=== PATIENT | male | born 1960 | race Caucasian/White ===

== ENCOUNTER 2018-04-12 14:07 | Observation (INO) | payer BC ==
--- OUTSIDE RECORDS SUMMARY | 2018-04-12 14:27 | XMS REPORT | Continuity of Care Document ---
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 Active Onset: 01/06/2016 Marginal corneal ulcer Torsten Caruso M.D. Active Onset: 08/06/2015 Vitreous opacities Maxi Rogel O.D. Active Onset: 08/06/2015 Ocular hypertension Maxi Rogel O.D. Active Family History Date Family Member(s) Problem(s) Comments General Cancer General Grandparent Father Cataract Mother Cataract Mother Arthritis Mother Diabetes Social History Type Date Description Comments Sex Unknown ETOH Use Occasionally consumes alcohol Tobacco Use Start: Unknown Patient has never smoked Smoking Status Reviewed: 03/28/18 Patient has never smoked Allergies, Adverse Reactions, Alerts Description No Known Drug Allergies Medications Medication Date Status Form Strength Qnty SIG Indications Ordering Provider Lumigan Active Solution 0.01% 7.500ml one drop Maxi 017 every Flores, OD night at bedtime both eyes Lumigan Hx Solution 0.01% 7.500ml one drop Maxi 017 - every Flores, OD night at 017 bedtime both eyes Lumigan Hx Solution 0.01% 7.500ml one drop Maxi 017 - every Flores, OD night at 017 bedtime both eyes Lumigan Hx Solution 0.01% 7.500ml one drop Maxi 017 - every Flores, OD night at 017 bedtime both eyes No Active Hx Unknown Medications 016 - 016 Minal Hx Solution 0.01% 7.500ml 1 drops H40.053 Torsten 016 - both eyes Caruso, every M.D. 017 night Immunizations Description No Information Available Vital Signs Date Vital Result Comment 05/11/2017 2:03pm Intraocular Pressure Right Eye 18 mmHg Intraocular Pressure Left Eye 18 mmHg 02/02/2017 9:32am Intraocular Pressure Right Eye 20 mmHg Intraocular Pressure Left Eye 20 mmHg 08/17/2016 9:25am Intraocular Pressure Right Eye 21 mmHg Intraocular Pressure Left Eye 21 mmHg 05/20/2016 9:32am Intraocular Pressure Right Eye 18 mmHg Intraocular Pressure Left Eye 18 mmHg 01/06/2016 10:05am Intraocular Pressure Right Eye 20 mmHg Intraocular Pressure Left Eye 20 mmHg 09/06/2015 11:38am Intraocular Pressure Right Eye 21 mmHg Intraocular Pressure Left Eye 21 mmHg 08/06/2015 10:07am Intraocular Pressure Right Eye 31 mmHg Intraocular Pressure Left Eye 30 mmHg Cornea Thickness Left Eye 279240 m Cornea Thickness Right Eye 580903 m Pachymetry adjusted IOP Right Eye 0 Pachymetry adjusted IOP Left Eye +1 Results Description No Information Available Procedures Date Code Description Status 03/28/2018 02311 Oct, Optic Nerve Completed 03/28/2018 89807 Eye Exam Est Intermediate Completed 05/11/2017 58939 Visual Field Exam Extended, Unilateral Or Bilateral Completed 05/11/2017 64347 Eye Exam Est Intermediate Completed 02/02/2017 72360 Fundus Photography W/Interpretation & Report Completed 02/02/2017 05576 Eye Exam Est Intermediate Completed 08/17/2016 11328 Oct, Optic Nerve Completed 08/17/2016 14231 Eye Exam Est Intermediate Completed 05/20/2016 06194 Eye Exam Est Intermediate Completed 01/06/2016 52079 Eye Exam Est Intermediate Completed 09/06/2015 73142 Oct, Optic Nerve Completed 09/06/2015 04186 Visual Field Exam Extended, Unilateral Or Bilateral Completed 09/06/2015 84737 Eye Exam Est Intermediate Completed 08/06/2015 27482 Fundus Photography W/Interpretation & Report Completed 08/06/2015 84919 Eye Exam New Comprehensive Completed Encounters Description No Information Available Plan of Treatment 03/28/2018 - Maxi Flores, ODH40.053 Ocular hypertension, bilateralFollow up:~1 -2 mos full
--- OUTSIDE RECORDS SUMMARY | 2018-04-12 14:27 | XMS REPORT ---
:1960 External Reference #:[id number] Author Organization [facility] Address [address] [place] [address] Phone [phone] Care Team Providers Name Role Phone Harry Day MD Care Team Information Recyclable Materials Sorter Unavailable Harry Day MD Primary Care Physician Unavailable Payers Type Date Identification Numbers Payment Provider Subscriber Commercial Effective: Policy Number: BC/BS Of [place] Antonino French 2011 [id number] Group Name: [employer] [address] [address] PayID: [id number] [place] [address] Problems Date Description Provider Status Onset: 03/29/2018 Dermatophytosis of the body Harry Day M.D. Active Onset: 03/29/2018 Other hyperlipidemia Haryr Day M.D. Active Onset: 10/19/2017 Adult health examination Haryr Day M.D. Active Onset: 10/19/2017 Benign prostatic hypertrophy without Harry Day M.D. Active outflow obstruction Onset: 10/19/2017 Hyperlipidemia Harry Day M.D. Active Onset: 10/19/2017 Essential hypertension Harry Day M.D. 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 Treatment 2018 ml application Shallish, topically to M.D. affected area daily at bedtime for fungal nail disease Eye Drops / Active Solution 1 gtt both Unknown 0000 eyes qd No Active 10/19/ Hx Unknown Medications 2018 - 2017 Prednisone 09/14/ Hx Tablets 20mg 20tabs 3 by mouth R21 Omaira 2018 - every day x2 Alessia 10/14/ days then 2 Rothman, 2018 by mouth PROMOTIONS SPECIALIST every day x 3 days then 1 by mouth every day x 3 days then 1/2 every day x 4 Tamiflu 05/20/ Hx Capsules 75mg 10caps take 1 Tiera 2017 - capsule by Brookesmith, 09/13/ mouth daily M.D. 2017 for 10 days for treatment to prevent influenza No Active 04/06/ Hx Unknown Medications 2015 - 2015 Ciclopirox 04/06/ Hx Gel 0.77% 45gm apply to B35.4 Berna 2015 - affected Dae, 08/19/ area three [employer] 2017 times a day Ciloxan 10/26/ Hx Solution 3.33mg/GM 5ml 1-2 qtt in 373.11 Berna 2005 - affected eye Dae, 05/23/ q2h wa for [employer] 2008 2D then q4h wa for 3-4D Immunizations CPT Code Status Date Vaccine Lot # [id number] Given 03/29/2018 Influenza Vac, Quadrivalent, Slit Virus, Im [id number] Given 10/19/2017 Tdap Tetanus, W Pertussis [id number] Given 05/29/2004 Td Immunization, For Use In Individuals 7 Years Or Older Vital Signs Date Vital Result Comment 03/29/2018 BP Systolic 136 mmHg BP Diastolic 82 mmHg Heart Rate 72 /min Body Temperature 97.9 F Respiratory Rate 16 /min Height 72 inches 6'0" measured 10/19/17 Weight 232.00 lb BMI (Body Mass Index) 31.5 kg/m2 10/19/2017 BP Systolic 140 mmHg BP Diastolic 100 mmHg Heart Rate 72 /min Body Temperature 98.8 F Respiratory Rate 16 /min Height 72 inches 6'0" measured 10/19/17 Weight 227.25 lb BMI (Body Mass Index) 30.8 kg/m2 09/14/2017 BP Systolic 152 mmHg BP Diastolic 84 mmHg Heart Rate 78 /min Body Temperature 98.4 F Height 72.25 inches 6'0.25" Weight 225.00 lb BMI (Body Mass Index) 30.3 kg/m2 04/06/2016 BP Systolic 120 mmHg BP Diastolic 80 mmHg Heart Rate 76 /min Body Temperature 98.2 F Respiratory Rate 18 /min Height 72.25 inches 6'0.25" Weight 230.00 lb BMI (Body Mass Index) 31.0 kg/m2 06/23/2012 BP Systolic 142 mmHg BP Diastolic 92 mmHg Heart Rate 74 /min Body Temperature 98.6 F Height 72.25 inches 6'0.25" Weight 226.00 lb BMI (Body Mass Index) 30.4 kg/m2 11/12/2008 BP Systolic 120 mmHg BP Diastolic 80 mmHg Heart Rate 68 /min Body Temperature 98.2 F Height 72 inches 6'0" Weight 223.00 lb BMI (Body Mass Index) 30.2 kg/m2 05/23/2007 BP Systolic 134 mmHg BP Diastolic 80 mmHg Body Temperature 98.7 F Height 72 inches 6'0" Weight 222.00 lb BMI (Body Mass Index) 30.1 kg/m2 10/26/2005 BP Systolic 120 mmHg BP Diastolic 70 mmHg Heart Rate 76 /min Body Temperature 98.1 F Height 72 inches 6'0" Weight 220.00 lb BMI (Body Mass Index) 29.8 kg/m2 05/29/2004 BP Systolic 130 mmHg BP Diastolic 92 mmHg Heart Rate 74 /min Height 72 inches 6'0" Weight 220.00 lb BMI (Body Mass Index) 29.8 kg/m2 Results Test Date Test Result H/L Range Note Laboratory test finding 03/29/2018 TSH <pending> 0.5-5.0 Creatine Kinase <pending> 38-174 CBC Electronic (a New) 03/29/2018 WBC 8.94 4.0-10.0 RBC 4.74 3.93-6.0 Hemoglobin (Fma/CMC/CTX) 15.0 g/dL 12.0-17.0 Hematocrit (Fma/CMC/CTX) 44.8 % 35.0-50.0 Mean Corpuscular Vol 94.5 fL 80-95 Mean Corpuscular Hemoglobin 31.6 pg 25.6-32.2 Mean Corpuscular Hemo Concen 33.5 g/dL 32.2-36.0 Platelets 220 10^3/ul 163-400 RDW-CV 12.1 11.6-14.4 Mean Platelet Volume 11.4 fL 8.0-12.4 Absolute Neutrophils BLD 6.42 High 1.56-6.13 Absolute Lymphocytes 1.54 1.18-3.74 Absolute Monocytes BLD Auto 0.75 0.24-0.82 Absolute Eos Blood 0.16 0.04-0.54 Absolute Basophils 0.05 0.01-0.08 Neutrophil % 71.8 % High 34.0-70.0 Lymph% 17.2 % Low 20.0-52.0 Monocytes % 8.4 % 5.0-12.0 Eos % 1.8 % 0.7-7.0 Basophil% 0.6 % 0-1.2 CBC Electronic [facility] 10/19/2017 WBC 5.9 x10^3/UL 4.0-10.0 RBC 4.70 x10^6/UL 3.93-6.00 HGB 14.6 g/dL 12.0-17.0 HCT 43 % 35-50 MCV 92.1 fL 80.0-95.0 MCH 31.1 pg 25.6-32.2 MCHC 33.7 g/dL 32.2-36.0 RDW-CV 12.0 % 11.6-14.4 PLT 219 x10^3/UL 163-400 MPV 11.9 fL 9.4-12.4 Darline# 4.15 x10^3/UL 1.56-6.13 Lymph# 1.02 x10^3/UL Low 1.18-3.74 [place]# 0.51 x10^3/UL 0.24-0.82 Eos # 0.1 x10^3/UL 0.0-0.5 Baso # 0.05 x10^3/UL 0.01-0.08 [place]% 70.9 % High 34.0-70.0 Lymph % 17.4 % Low 20.0-52.0 [place]% 8.7 % 5.0-12.0 Eos% 1.9 % 0.7-7.0 Baso% 0.9 % 0.1-1.2 Laboratory test finding 10/19/2017 TSH 1.13 mIU/L 0.50-6.00 PSA 0.3 ng/mL 0.0-4.0 Ua - Non Micro (Fma) 10/19/2017 Appearance clear Color yellow Glucose, Urine (Fma/CMC/CTX) neg Bilirubin neg Ketones neg SP Grav 1.015 Blood neg PH 7.0 Protein neg Urobil 0.2 Nitrite neg Leukocytes (a/[place]/Centrex) neg Comprehensive Metabolic Prof 10/19/2017 Sodium 140 mEq/L 134-149 Potassium 4.7 mEq/L 3.6-5.5 Chloride 104 mEq/L 94-112 Carbon Dioxide 29 mEq/L 21-32 Glucose 120 mg/dL High 70-105 BUN 13 mg/dL 6-26 Creatinine 0.8 mg/dL 0.6-1.4 BUN/Creat Ratio 16.3 CALC 8.0-36.0 Calcium 9.2 mg/dL 8.6-10.2 Total Protein 6.6 g/dL 6.4-8.3 Albumin 4.4 g/dL 3.8-5.5 Globulin 2.2 g/dL 2.0-4.8 A/G Ratio 2.0 CALC 0.6-2.3 Alk. Phosphatase 63 U/L 22-95 Alt (SGPT) 30 U/L 7-35 Ast (Sgot) 16 U/L 5-34 Total Bilirubin 0.5 mg/dL 0.2-1.3 GFR Non- >60 ml/min/1.73m^ >=60 GFR >60 ml/min/1.73m^ >=60 Lipid Profile 10/19/2017 Cholesterol 263 mg/dL High 120-200 Triglycerides 104 mg/dL 30-200 HDL Cholesterol 62 mg/dL 30-70 LDL (Calculated) 180 CALC High 0-129 VLDL Cholesterol 21 mg/dL 0-50 HDL Risk Factor 4.2 CALC 0.0-4.4 Laboratory test finding 11/27/2008 PSA 0.20 ng/mL 0.00-4.00 Complete Blood Count 11/27/2008 WBC 6.2 x10^3/uL 3.6-9.6 1 Gran# 4.5 x10^3/uL 1.5-7.2 1 Gran% 73.0 % 42.2-75.2 1 HCT 45 % 36-50 1 HGB 15.1 g/dL 12.1-17.2 1 Lymph# 1.3 x10^3/uL 0.7-4.9 1 Lymph% 20.3 % Low 20.5-51.1 1 MCH 30.7 pg 27.6-33.3 1 MCV 91.1 fL 82.2-97.4 1 MCHC 33.7 g/dL 33.0-35.5 1 Mo# 0.4 x10^3/uL 0.1-0.9 1 Mo% 6.7 % 1.7-9.3 1 MPV 10.0 fL 7.4-10.4 1 PLT 202 x10^3/uL 150-400 1 RBC 4.92 x10^6/uL 3.90-5.70 1 RDW 12.1 % 11.6-13.7 1 Comprehensive Metabolic Prof 11/27/2008 Albumin 4.4 g/dL 3.8-5.5 1 Alk. Phos. 59 U/L 22-95 1 Alt (SGPT) 22 U/L 10-40 1 Ast (Sgot) 13 U/L 5-34 1 BUN 20 mg/dL 6-26 1 Calcium 9.5 mg/dL 8.6-10.2 1 Chloride 100 mEq/L 94-112 1 Creatinine 1.1 mg/dL 0.6-1.4 1 Carbon Dioxide 28 mEq/L 21-32 1 Glucose 106 mg/dL High 70-105 1 Sodium 140 mEq/L 134-149 1 Total Bilirubin 0.7 mg/dL 0.2-1.3 1 Total Protein 6.9 g/dL 6.3-8.1 1 Potassium 5.4 mEq/L 3.6-5.5 1 Globulin 2.6 g/dL 2.0-4.8 1 A/G Ratio 1.7 Calc 0.6-2.2 1 BUN/Creat Ratio 18.1 Calc 8.0-36.0 1 Lipid Profile 11/27/2008 Cholesterol 283 mg/dL High 120-200 1 HDL 61 mg/dL 30-70 1 Triglycerides 102 mg/dL 30-200 1 HDL Risk Factor 4.7 CALC 4.2-7.0 1 LDL (Calculated) 202 CALC High 0-129 1 VLDL (Calculated) 20 mg/dL 0-50 1 Comp Metabolic Panel 05/25/2007 One Over Creatinine 0.90 Anion Gap 9.0 mmol/L 2-11 2 Albumin/Globulin Ratio 1.8 1-3 Albumin 4.5 GM/DL 3.6-5.4 Alkaline Phosphatase 61 U/L 39-117 Alt (SGPT) 47 U/L 17-63 Ast (Sgot) 20 U/L 12-42 BUN 12 mg/dL 6-24 Calcium 9.7 mg/dL 8.7-10.2 Chloride 105 mmol/L 101-111 Co2 (Carbon Dioxide) 28.0 mmol/L 22-32 Globulin 2.5 GM/DL 2-4 Glucose 93 mg/dL 70-105 Potassium 5.6 mmol/L High 3.5-5.0 Sodium 142 mmol/L 135-145 Bilirubin Total 0.7 mg/dL 0.4-1.5 Total Protein 7.0 GM/DL 6.2-8.1 BUN/Creatinine Ratio 10.9 8-20 Creatinine 1.1 mg/dL 0.5-1.4 Comp Metabolic Panel 05/25/2007 One Over Creatinine 0.90 Anion Gap 9.0 mmol/L 2-11 3 Albumin/Globulin Ratio 1.8 1-3 Albumin 4.5 GM/DL 3.6-5.4 Alkaline Phosphatase 61 U/L 39-117 Alt (SGPT) 47 U/L 17-63 Ast (Sgot) 20 U/L 12-42 BUN 12 mg/dL 6-24 Calcium 9.7 mg/dL 8.7-10.2 Chloride 105 mmol/L 101-111 Co2 (Carbon Dioxide) 28.0 mmol/L 22-32 Globulin 2.5 GM/DL 2-4 Glucose 93 mg/dL 70-105 Potassium 5.6 mmol/L High 3.5-5.0 Sodium 142 mmol/L 135-145 Bilirubin Total 0.7 mg/dL 0.4-1.5 Total Protein 7.0 GM/DL 6.2-8.1 BUN/Creatinine Ratio 10.9 8-20 Creatinine 1.1 mg/dL 0.5-1.4 Laboratory test finding 05/25/2007 TSH 1.31 MIU/ML 0.34-5.60 Complete Blood Count 05/23/2007 WBC 7.5 x10\\S\\3/uL 3.6-9.6 Gran# 5.7 x10\\S\\3/uL 1.5-7.2 Gran% 75.4 % High 42.2-75.2 HCT 47 % 36-50 HGB 15.8 g/dL 12.1-17.2 Lymph# 1.5 x10\\S\\3/uL 0.7-4.9 Lymph% 19.6 % Low 20.5-51.1 MCH 32.3 pg 27.6-33.3 MCV 96.2 fL 82.2-97.4 MCHC 33.6 g/dL 33.0-35.5 Mo# 0.4 x10\\S\\3/uL 0.1-0.9 Mo% 5.0 % 1.7-9.3 MPV 9.2 fL 7.4-10.4 PLT 248 x10\\S\\3/uL 150-400 RBC 4.88 x10\\S\\6/uL 3.90-5.70 RDW 11.8 % 11.6-13.7 Ua - Micro ([facility]) 05/23/2007 Appearance CLEAR Color LT YELLOW Glucose, Urine (a/CMC/CTX) NEG Bilirubin NEG Ketones NEG SP Grav 1.025 Blood NEG PH 6.5 Protein NEG Urobil 0.2 Nitrite NEG Leukocytes (Fma/CMC/Centrex) NEG Hyaline - /Lpf Granular - /Lpf WBC (a,Centrex) 0-1 RBC 0-1 Mucus (Fma/CBC/Centrex) - /Lpf Epith - /Lpf Bacteria - /Hpf Amorphous (Fma/CMC/Centrex) - /Lpf Crystals, Fluid (Fma/CMC/CTX) - Z#Comments - CBC Electronic ([facility]) 05/29/2004 WBC 7.2 3.6-9.6 Lymphocytes 24.6 % 20.5 - 51.1 Monocytes 2.3 % 1.7-9.3 Granulocytes 73.1 % 42.2 - 75.2 Lymphocytes 1.8 10^3/uL 0.7 - 4.9 Monocytes 0.2 10^3/uL 0.1 - 0.9 Granulocytes 5.3 10^3/uL 1.5 - 7.2 RBC 4.84 3.90-5.70 Hemoglobin (Fma/CMC/CTX) 15.5 g/dL 12.1 - 17.2 Hematocrit (Fma/CMC/CTX) 45.8 % 36.1 - 50.3 Mean Corpuscular Vol 94.8 82.2-97.4 Mean Corpuscular Hemaglobin 32.1 27.6-33.3 Mean Corpuscular Hemo Concen 33.9 33.0-35.5 RDW 11.7 11.6-13.7 Platelets 221. 10^3/ul 150-400 Mean Platelet Volume 9.1 7.4-10.4 Comp Metabolic (Fma) Male 05/29/2004 Glucose, Serum (a/CMC/CTX) 95 mg/dL 70-118 BUN (Fma/CMC/Centrex) 16 mg/dL 6-26 Creatinine (Fma/CMC/CTX) 1.1 mg/dL 0.6-1.4 BUN/Creatinin Ratio 14.9 8.0-36 Sodium 142 134-149 Potassium 5.3 3.6-5.5 Chloride 100 mEq/L 94-112 Co2 30 21-32 Calcium (Fma/CMC/Centrex) 10.0 mg/dL 8.6-10.2 Total Protein 7.0 g/dL 6.3-8.1 Albumin (a/CMCC/Centrex) 4.5 3.8-5.5 Globulin 2.5 2.0-4.8 A/G Ratio (Fma/CMC/Centrex) 1.8 0.6-2.2 Alk Phos (a) Male 68 U/L 22-95 Alt (SGPT) 23 10-40 Ast (Sgot) (a/CMC/Centrex) 14 U/mL 5-34 Total Bilirubin 0.6 Lipid Profile(a) Male 05/29/2004 Cholesterol 233 mg/dL High 120-200 Triglyceride 82 mg/dL 30-200 HDL Cholesterol (Fma) Male 45 mg/dL 30-70 LDL, Calculated (a/CMC) 172 CALC High 0-129 LDL, Direct - mg/dL 0-130 VLDL 16 0-50 HDL Risk Factor (a) 5.2 CALC 4.2-7.0 Laboratory test finding 05/29/2004 PSA 0.37 0.0-4.0 TSH (Fma/CMC/Centrex) 1.77 uIU/ml 0.5-6.0 1 FASTING 2 Anion gap measurement may be of limited value in the presence of any alkalosis, especially in a combined acid base disorder. . 3 Anion gap measurement may be of limited value in the presence of any alkalosis, especially in a combined acid base disorder. . Procedures Date CPT Code Description Status 01/28/2018 Colonoscopy Completed 10/19/2017 85822 Electrocardiogram Complete Completed 04/06/2016 65703 Finger Or Heel Stick Completed 07/01/2007 Colonoscopy Completed Encounters Type Date Location Provider CPT E/M Dx Office Visit 10/19/2017 8:00a Main Office Harry Day M.D. 15047 I10 E78.4 N40.0 Z00.00 Z23 Office Visit 09/14/2017 8:45a [place] [address] R21 R03.0 Office Visit 04/06/2016 11:15a Main Office LILLIE Penn 46277 B35.4 Z83.3 Office Visit 06/23/2012 2:00p Main Office Gagandeep Hidalgo-C 32341 V41.1 Office Visit 11/12/2008 4:40p [facility] Harry Day M.D. 36712 786.50 272.4 530.81 Office Visit 05/23/2007 3:00p [facility] Harry Day M.D. 49996 789.00 Office Visit 10/26/2005 1:15p Main Office LILLIE Penn 27942 373.11 Office Visit 05/29/2004 1:15p Main Office Harry Day M.D. 94557 V70.0 V77.0 V77.91 V76.44 783.1 V06.5 Plan of Care Future Appointment(s):10/24/2018 8:00 am - Harry Day M.D. at [facility] Voinwr6003/29/2018 - Harry Day M.D.I10 Essential (primary) hypertensionComments:blood pressure high today , he is going to recheck this and let me know readings, hopefully less than 140/90, if not then consider [id number] Other hyperlipidemiaComments:continue Crestor ( rosuvastatin) 5 mg daily, recheck lab workB35.4 Tinea corporisComments:under left axilla, refill [id number] Encounter for immunizationFollow up:Followup:. (Follow up) AllFollow up:return to office for cpe in 6 months for cpe
[2018-04-12 15:58] LABS: ABS Basophils 0 10^3/ul (0-0.2); ABS Eosinophils 0 10^3/ul (0-0.6); ABS Monocytes 1.1 10^3/ul (0-0.8); ABS Neutrophils 17.5 10^3/ul (1.5-7.7); ABS Nucleated RBC 0 10^3/ul; Eosinophil % 0.2 %; Hematocrit 48 % (42-52); Lymphocyte % 5.1 %; Mean Corpuscular HGB Conc 34 g/dl (31-36); Mean Corpuscular Hemoglobin 31 pg (27-31); Mean Corpuscular Volume 94 fL (80-94); Mean Platelet Volume 9.9 fL (7.4-10.4); Nucleated Red Blood Cells % 0.1; Platelet Count 224 10^3/ul (150-450); Red Blood Count 5.08 10^6/ul (4.00-5.40); Red Cell Distribution Width 13 % (10.5-15); White Blood Count 19.6 10^3/ul (3.5-10.8)
[2018-04-12 16:15] LABS: EGFR Non-African American 76.7 (>60)
[2018-04-12] MEDS ORDERED: Morphine VIAL* 4 MG/ML VIAL (1 ml vial) IV ONE ×2 (16:28→18:46)
[2018-04-12] MEDS ORDERED: ceFOXitin 2 GM IVPREMIX* 2 GM/50 ML BAG IVPB ONE (16:28)
[2018-04-12] MEDS ORDERED: Ondansetron INJ* 2 MG/ML VIAL IV ONE (16:28)
[2018-04-12] MEDS: NS 0.9% IV ONE ×3 (16:46→18:43)
--- NOTE | 2018-04-12 17:04 | ED ---
Abdominal Pain/Male - HPI Summary HPI Summary: Patient is a 57 y/o M w/ c/o RLQ pain onsetting suddenly last night. N/V/D are denied. Pain is described as constant, he denies back pain, testicular pain, hematuria, fever, diaphoresis, and chills. Patient reports that he did not eat today, last fluid intake was around 1430. PSHx is denied, patient takes medication for HLD. No FMHx of aneurysms. Fever, chills, erythema of eyes, sore throat, chest pain, SOB, cough, abdominal pain, vomiting, nausea, dysuria, hematuria, myalgia, edema, rash and dizziness are not reported. On triage, pain is rated 7/10, nothing is noted to alleviate Sx, Sx aggravated by movement. Home medications and allergies are reviewed. - History of Current Complaint Chief Complaint: EDAbdPain Stated Complaint: LOWER RT ABD PAIN Time Seen by Provider: 04/12/18 16:27 Hx Obtained From: Patient Onset/Duration: Sudden Onset, Lasting Days - onset last night, Still Present Timing: Constant, Lasting Days - onset last night Severity Currently: Severe - 7/10 Pain Intensity: 7 Pain Scale Used: 0-10 Numeric - 7/10 Location: Discrete At: RLQ Radiates: No Aggravating Factor(s): Movement Alleviating Factor(s): Nothing Associated Signs And Symptoms: Positive: Decreased Appetite - has not eaten since yesterday, Other - Fever, chills, erythema of eyes, sore throat, chest pain, SOB, cough, abdominal pain, vomiting, nausea, dysuria, hematuria, myalgia , edema, rash, back pain, testicular pain, and dizziness are not reported. Negative: Diaphoresis, Fever, Cough, Chest Pain, Dizzy, Back Pain, Urinary Symptoms, Nausea, Vomiting - Allergies/Home Medications Allergies/Adverse Reactions: Allergies Allergy/AdvReac Type Severity Reaction Status Date / Time No Known Allergies Allergy Verified 01/24/18 11:46 PMH/Surg Hx/FS Hx/Imm Hx Sensory History: Denies: Hx Legally Blind, Hx Deafness Opthamlomology History: Denies: Hx Legally Blind EENT History: Denies: Hx Deafness - Surgical History Surgery Procedure, Year, and Place: none Infectious Disease History: No Infectious Disease History: Denies: Traveled Outside the [place] in Last 30 Days - Family History Known Family History: Positive: Other - no FMHx of aneurysms - Social History Alcohol Use: Occasionally Substance Use Type: Reports: None Smoking Status (MU): Never Smoked Tobacco Review of Systems Negative: Fever, Chills, Skin Diaphoresis Negative: Erythema Negative: Sore Throat Negative: Chest Pain Negative: Shortness Of Breath, Cough Positive: Abdominal Pain. Negative: Vomiting, Nausea Negative: dysuria, hematuria, pain - NEGATIVE - TESTICULAR PAIN Negative: Myalgia - NEGATIVE - BACK PAIN , Edema Negative: Rash Neurological: Other - NEGATIVE - DIZZINESS All Other Systems Reviewed And Are Negative: Yes Physical Exam - Summary Physical Exam Summary: Constitutional: Well-developed, Well-nourished, Alert. (-) Distressed Skin: Warm, Dry HENT: Normocephalic; Atraumatic Eyes: Conjunctiva normal Neck: Musculoskeletal ROM normal neck. (-) JVD, (-) Stridor, (-) Tracheal deviation Cardio: Rhythm regular, rate normal, Heart sounds normal; Intact distal pulses; The pedal pulses are 2+ and symmetric. Radial pulses are 2+ and symmetric. (-) Murmur Pulmonary/Chest wall: Effort normal. (-) Respiratory distress, (-) Wheezes, (-) Rales Abd: Soft, (-) epigastric tenderness, (+) RLQ tenderness (-) Distension, (+) RLQ Guarding, (-) Rebound Musculoskeletal: (-) Edema Lymph: (-) Cervical adenopathy Neuro: Alert, Oriented x3 Psych: Mood and affect Normal Triage Information Reviewed: Yes Vital Signs On Initial Exam: Initial Vitals Temp Pulse Resp BP Pulse Ox 99 F 104 20 166/106 95 04/12/18 14:19 04/12/18 14:19 04/12/18 14:19 04/12/18 14:19 04/12/18 14:19 Vital Signs Reviewed: Yes Diagnostics - Vital Signs Vital Signs Temp Pulse Resp BP Pulse Ox 04/12/18 16:51 18 04/12/18 16:30 98 184/104 96 04/12/18 16:29 112 81 04/12/18 15:54 99.3 F 96 18 196/110 99 04/12/18 14:19 99 F 104 20 166/106 95 - Laboratory Lab Results: Lab Results 04/12/18 04/12/18 04/12/18 Range/Units 15:34 15:34 15:34 WBC 19.6 H (3.5-10.8) 10^3/ul RBC 5.08 (4.00-5.40) 10^6/ul Hgb 16.0 (14.0-18.0) g/dl Hct 48 (42-52) % MCV 94 (80-94) fL MCH 31 (27-31) pg MCHC 34 (31-36) g/dl RDW 13 (10.5-15) % Plt Count 224 (150-450) 10^3/ul MPV 9.9 (7.4-10.4) fL Neut % (Auto) 89.2 % Lymph % (Auto) 5.1 % Villalba % (Auto) 5.4 % Eos % (Auto) 0.2 % Baso % (Auto) 0.1 % Absolute Neuts (auto) 17.5 H (1.5-7.7) 10^3/ul Absolute Lymphs (auto) 1.0 (1.0-4.8) 10^3/ul Absolute Monos (auto) 1.1 H (0-0.8) 10^3/ul Absolute Eos (auto) 0 (0-0.6) 10^3/ul Absolute Basos (auto) 0 (0-0.2) 10^3/ul Absolute Nucleated RBC 0 10^3/ul Nucleated RBC % 0.1 Sodium 136 (135-145) mmol/L Potassium 4.4 (3.5-5.0) mmol/L Chloride 100 L (101-111) mmol/L Carbon Dioxide 29 (22-32) mmol/L Anion Gap 7 (2-11) mmol/L BUN 12 (6-24) mg/dL Creatinine 1.00 (0.67-1.17) mg/dL Est GFR ( Amer) 92.9 (>60) Est GFR (Non-Af Amer) 76.7 (>60) BUN/Creatinine Ratio 12.0 (8-20) Glucose 120 H (70-100) mg/dL Lactic Acid 0.7 (0.5-2.0) mmol/L Calcium 9.9 (8.6-10.3) mg/dL Total Bilirubin 0.90 (0.2-1.0) mg/dL AST 29 (13-39) U/L ALT 55 H (7-52) U/L Alkaline Phosphatase 90 (34-104) U/L C-Reactive Protein 76.42 H (<8.01) mg/L Total Protein 7.6 (6.4-8.9) g/dL Albumin 4.6 (3.2-5.2) g/dL Globulin 3.0 (2-4) g/dL Albumin/Globulin Ratio 1.5 (1-3) Lipase 12 (11.0-82.0) U/L Result Diagrams: 04/12/18 15:34 04/12/18 15:34 Lab Statement: Any lab studies that have been ordered have been reviewed, and results considered in the medical decision making process. Abdominal Pain Fem Course/Dx - Course Course Of Treatment: Patient is a 57 y/o M w/ c/o RLQ pain onsetting suddenly last night. N/V/D are denied. Pain is described as constant, he denies back pain , testicular pain, hematuria, fever, diaphoresis, and chills. Patient reports that he did not eat today, last fluid intake was around 1430. PSHx is denied, patient takes medication for HLD. No FMHx of aneurysms. On physical exam, patient is noted to have RLQ tenderness with guarding. Labs showed CRP 76.42, glucose 120, lactic acid 0.7, chloride 100, absolute monos 1.1, absolute neuts 17.5, WBC 19.6. During ED course, patient received xogran 4 mg IV ED, morphine 4 mg IV ED, cefoxitin sodium and fluids. Patient is signed out to Dr. Anton pending CT ABD/PEL, UA. - Diagnoses Provider Diagnoses: RLQ abdominal pain, Acute appendicitis Discharge - Sign-Out/Discharge Documenting (check all that apply): Sign-Out Patient Signing out patient TO: Tay Anton Receiving patient FROM: Guillermo Ramirez - Discharge Plan Condition: Stable Disposition: ADMITTED TO [facility] - Billing Disposition and Condition Condition: STABLE Disposition: Admitted to [facility] - Attestation Statements Document Initiated by Scribe: Yes Documenting Scribe: PANCHO CISNEROS Provider For Whom Scribe is Documenting (Include Credential): GUILLERMO RAMIREZ MD Scribe Attestation: PANCHO Alcantara , scribed for GUILLERMO RAMIREZ MD on 04/21/18 at 1251. Scribe Documentation Reviewed: Yes Provider Attestation: The documentation as recorded by the scribePANCHO accurately reflects the service I personally performed and the decisions made by me, GUILLERMO RAMIREZ MD Status of Scribe Document: Viewed
[2018-04-12] MEDS ORDERED: Iohexol 300* (CONTRAST) 10 ML SDV IV ONE (17:28)
--- NOTE | 2018-04-12 17:45 | ED ---
Progress - Progress Note Progress Note: Patient is received as a sign out from Dr. Ramirez to Dr. Anton at [address] ABD/PEL and UA. CT A/P: IMPRESSION Acute uncomplicated appendicitis. Course/Dx - Course Course Of Treatment: Patient is received as a sign out from Dr. Ramirez to Dr. Anton at 1730 04/12/[address] ABD/PEL and UA. Patient's case was discussed with Dr. Godwin at 1840. Patient is a 57 y/o M w/ c/o RLQ pain onsetting suddenly last night. N/V/D are denied. Pain is described as constant, he denies back pain, testicular pain, hematuria, fever, diaphoresis, and chills. Patient reports that he did not eat today, last fluid intake was around 1430. PSHx is denied, patient takes medication for HLD. No FMHx of aneurysms. On physical exam, patient is noted to have RLQ tenderness with guarding. Labs showed CRP 76.42, glucose 120, lactic acid 0.7, chloride 100, absolute monos 1.1 , absolute neuts 17.5, WBC 19.6. During ED course, patient received xogran 4 mg IV ED, morphine 4 mg IV ED, cefoxitin sodium and fluids. Patient is signed out to Dr. Anton pending CT ABD/PEL, UA. A CT A/P revealed acute uncomplicated appendicitis. Patient care was discussed with hospitalist, Dr. Sky, who accepts patient for admission. Patient will be admitted with a diagnosis of RLQ abdominal pain. Patient is agreeable with this plan. - Diagnoses Provider Diagnoses: RLQ abdominal pain, Acute appendicitis - Provider Notifications Discussed Care Of Patient With: Antonino Godwin Time Discussed With Above Provider: 18:40 Instructed by Provider To: Other - Patient's case was discussed with Dr. Godwin at [address]. Dr. Godwin states he will be in to see patient. Chris - Accepts patient for admission. Discharge - Sign-Out/Discharge Documenting (check all that apply): Patient Departure - ADMIT, Sign-Out Patient - CHRIS Signing out patient TO: Tay Anton Receiving patient FROM: Guillermo Ramirez All imaging exams completed and their final reports reviewed: Yes - Discharge Plan Condition: Stable Disposition: ADMITTED TO [facility] - Billing Disposition and Condition Condition: STABLE Disposition: Admitted to [facility] - Attestation Statements Document Initiated by Veronica: Yes Documenting Scribe: Sukhdev CAREY Provider For Whom Veronica is Documenting (Include Credential): Tay Anton M.D. Scribe Attestation: IPANCHO Tariq Hussain, scribed for Tay Anton M.D. on 04/13/18 at 0213. Scribe Documentation Reviewed: Yes Provider Attestation: The documentation as recorded by the chiaraibadrian, Sukhdev CAREY accurately reflects the service I personally performed and the decisions made by me, Tay Anton M.D. Status of Veronica Document: Viewed
[2018-04-12] MEDS ORDERED: Piperacillin/Tazobac ADVAN(*) 3.375 GM in NS 0.9% 100 ML* 100 ML IVPB ONE (18:43)
[2018-04-12] MEDS ORDERED: NS 0.9% 1000 ML* 2,000 ML IV ONE (18:43)
[2018-04-12 18:59] LABS: Urine Appearance Clear; Urine Blood Negative (Negative); Urine Color Straw; Urine Ketones Negative (Negative); Urine Protein Negative (Negative); Urine Specific Gravity 1.006 (1.010-1.030); Urine Urobilinogen Negative (Negative)
[2018-04-12] MEDS ORDERED: Ondansetron INJ* 2 MG/ML VIAL ONE (22:13)
[2018-04-12] MEDS ORDERED: Dexamethasone IV* 4 MG/ML 1 ML (4 MG) ONE (22:13)
[2018-04-12] MEDS ORDERED: Propofol* 10 MG/ML 20 ML BTL ONE (22:13)
[2018-04-12] MEDS ORDERED: Lidocaine 2% PF * 5 ML VIAL ONE (22:13)
[2018-04-12] MEDS ORDERED: Midazolam* 1 MG/ML 5 ML VIAL (5 MG) ONE (22:14)
[2018-04-12] MEDS ORDERED: Cisatracurium* 2 MG/ML MDV 5 ML ONE (22:14)
[2018-04-12] MEDS ORDERED: fentaNYL* 50 MCG/ML 2 ML VIAL (100 MCG VIAL) ONE (22:14)
[2018-04-12] MEDS ORDERED: ceFOXitin 2 GM IVPREMIX* 0 GM/0 ML BAG ONE (22:23)
[2018-04-12] MEDS ORDERED: ceFOXitin 2 GM IVPREMIX* 2 GM/50 ML BAG ONE (22:36)
[2018-04-12] MEDS ORDERED: Bupivacaine 0.25% W/EPI* 10 ML SDV ONE (22:39)
[2018-04-12] MEDS ORDERED: fentaNYL* 50 MCG/ML 2 ML VIAL (100 MCG VIAL) IV PRN (23:20)
[2018-04-12] MEDS ORDERED: Ondansetron INJ* 2 MG/ML VIAL IV PRN ×2 (23:20→23:43)
[2018-04-12] MEDS ORDERED: Naloxone* 0.4 MG/ML 1 ML VIAL IV PRN (23:20)
[2018-04-12] MEDS ORDERED: Glycopyrrolate IV* 0.2 MG/ML 1 ML VIAL ONE (23:30)
[2018-04-12] MEDS ORDERED: Neostigmine Methylsulfate* 1 MG/ML 10 ML VIAL (1 mg/ml) ONE (23:30)
[2018-04-12] MEDS ORDERED: oxyCODONE/Acetamin 5/325 MG* TAB PO PRN (23:43)
[2018-04-12] MEDS ORDERED: HYDROmorphone INJ1* 1 MG/ML SYRINGE IV PRN (23:43)
[2018-04-12] MEDS ORDERED: Ketorolac INJ* 30 MG/ML 1 ML VIAL IV PRN (23:43)
[2018-04-12] MEDS ORDERED: Acetaminophen TAB* 325 MG PO PRN (23:43)
--- NOTE | 2018-04-12 23:48 | BRIEFOPN ---
Brief Operative Note - Surgery Procedures: PREOP DX: ACUTE APPENDICITIS POSTOP DX: SAME AND UMBILICAL HERNIA PROC: LAP APPENDECTOMY AND UMBILICAL HERNIA REPAIR SURG: MECENAS ASSIST: NONE ANES: GET/TOAL EBL: MIN IVF: CRYST SPEC: APPENDIX DRAIN: NONE COMPL: NONE COND: STABLE TO RR EXTUBATED.
[2018-04-13 07:31] VITALS: BP 151/82
[2018-04-13] MEDS ORDERED: Atorvastatin* 20 MG TAB PO SCH (09:00)
[2018-04-13] MEDS ORDERED: Latanoprost 0.005%* 2.5 ml BTL BOTH EYES SCH (18:00)
--- NOTE | 2018-04-13 21:13 | OP ---
CC: Harry Day MD * DATE OF SURGERY: 04/12/18 - ROOM #341 DATE OF : 58 SURGEON: Antonino Godwin MD POWER SHOVEL MECHANIC: None. ANESTHESIA: General endotracheal. ANESTHESIOLOGIST: Dr. Martínez Blanc. PRE-OP DIAGNOSIS: Acute appendicitis. POST-OP DIAGNOSES: Acute appendicitis and umbilical hernia. OPERATIVE PROCEDURE: Laparoscopic appendectomy and umbilical hernia repair. ESTIMATED BLOOD LOSS: Minimal. IV FLUIDS: Crystalloid. SPECIMEN: Appendix. DRAINS: None. COMPLICATIONS: None. COUNTS: Instrument, needle, and sponge counts correct. DESCRIPTION OF PROCEDURE: The patient was brought to the operating room and placed on the table supine. Sequential compression devices were placed on both lower extremities. General anesthesia was administered. The abdomen was prepped and draped in the usual sterile fashion. He received appropriate intravenous antibiotics and time-out was performed. Local anesthetic was infiltrated into the skin and soft tissue prior to making each incision. A curvilinear infraumbilical incision was created due to the presence of a small umbilical hernia. The umbilicus was elevated off the abdominal wall and dissected free. The umbilical hernia defect was approximately 1 cm. The defect was widened laterally on both sides in order to accommodate a 12-mm trocar, which was placed into the perineal cavity and then carbon dioxide was insufflated to a pressure of 15 mmHg. Under direct visualization, 5-mm trocars were placed in the suprapubic midline and in the left lower quadrant. Inspection in the right lower quadrant revealed an inflammatory mass adherent to the anterior abdominal wall, which was peeled away and subsequently this revealed a suppurative appendicitis with no evidence of perforation or gangrene. The appendix was dissected free from adjacent terminal ileum and fold of Treves. The appendix was elevated, a window created at the base of the appendix and then the appendix was divided from the cecum with the Endo ABIODUN stapler with a dubon cartridge. The appendix mesentery was divided with Endo ABIODUN stapler with a vargas cartridge. The appendix was placed into an endoscopic retrieval bag and retrieved through the umbilical site. The inspection revealed the staple lines to be intact and hemostatic. Ports removed under direct visualization and carbon dioxide was released. The umbilical hernia defect was then closed with 0 Vicryl suture using a [id number] suture and a single interrupted suture to complete the closure. The umbilical stalk was reapproximated to the anterior abdominal wall with 3-0 Vicryl. Skin incisions were all closed with 4-0 Monocryl in subcuticular fashion and Steri-Strips were applied with 4x4 gauze with mild compression of the umbilical site. The patient tolerated the procedure well. He was extubated and transferred to recovery room in stable condition. [id number]/[facility] #: [id number] [facility] SYSTEM[facility]
--- NOTE | 2018-04-26 12:14 | DS ---
CC: Harry Day MD * DISCHARGE SUMMARY: DATE OF ADMISSION: 04/13/18 DATE OF DISCHARGE: 04/13/18 DISCHARGE DIAGNOSIS: Acute appendicitis. PROCEDURES: Laparoscopic appendectomy on 04/13/18. HOSPITAL COURSE: This is a 57-year-old gentleman presenting to the emergency room with right lower quadrant abdominal pain starting the night before and progressing in severity prompting him to present to the emergency room on . CT scan was performed, which found to be consistent with a diagnosis of acute appendicitis. Laboratory work included WBCs that were elevated 19.6, and C -reactive protein of 76.42. The patient was taken to the operating room where he underwent a laparoscopic appendectomy. Please refer to the history and physical examination as well as the operative report for full details. Postoperatively, the patient did well and was able to be discharged from the recovery room. He was provided with preprinted instructions from the [facility] office, instructed to follow up in the office at 1 week after discharge. His pathology revealed acute suppurative appendicitis and periappendicitis. [id number]/[facility] #: [id number] MTDTonya
== END 2018-04-13 10:10 | disposition home or self-care (01) ==
LOC: ED 14:07 → OR 19:09 → SSU 04-13 00:45
PROVIDERS: ADMIT Surgery; ATTEND Surgery
DX: K35.80 Unspecified acute appendicitis (principal); K42.9 Umbilical hernia without obstruction or gangrene; R10.31 Right lower quadrant pain
CPT/HCPCS: 36415; 74177; 80053; 81003; 83605; 83690; 85025; 86140; 88304; 96365; 96366; 96375; 96376; 99284; C1776; G0378; J0694; J1100; J2250; J2270; J2405; J2543; J2704; J2710; J3010; Q9967